=== PATIENT | female | born 1995 | race Caucasian/White ===

== ENCOUNTER 2017-12-18 18:54 | Emergency (ER) | payer OTHER ==
[2017-12-18] MEDS: LIDOCAINE 1% (MDV) 20 ML INJ SC (19:48)
== END 2017-12-18 21:12 | disposition home or self-care (01) ==
LOC: FTE 18:54
DX: H60.02 Abscess of left external ear (principal)
CPT/HCPCS: 10060; 99283-25

== ENCOUNTER 2017-12-20 09:10 | Emergency (ER) | payer OTHER | END 2017-12-20 10:08 | disposition home or self-care (01) | LOC: FTE 09:10 | DX: Z48.01 Encounter for change or removal of surgical wound dressing (principal); L02.01 Cutaneous abscess of face | CPT/HCPCS: 99281; Z7502 ==

== ENCOUNTER 2018-02-17 17:26 | Emergency (ER) | payer OTHER | END 2018-02-17 18:11 | disposition home or self-care (01) | LOC: FTE 18:11 | DX: H65.191 Other acute nonsuppurative otitis media, right ear (principal) | CPT/HCPCS: 99283; Z7502 ==

== ENCOUNTER 2018-07-01 13:12 | Emergency (ER) | payer OTHER | END 2018-07-01 15:16 | disposition home or self-care (01) | LOC: FTE 13:12 | DX: L02.02 Furuncle of face (principal); L70.0 Acne vulgaris | CPT/HCPCS: 99283; Z7502 ==